=== PATIENT | female | born 1990 | race Caucasian/White ===

== ENCOUNTER → 2022-12-22 | Outpatient (CLI) | payer OTHER | LOC: M PLAIMG 08:54 | PROVIDERS: ATTEND Otolaryngology | DX: R07.0 Pain in throat (principal); J34.89 Other specified disorders of nose and nasal sinuses ==

== ENCOUNTER 2023-08-29 16:02 | Emergency (ER) | payer OTHER ==
[~2023-08-29] VITALS: Ht 160 cm; Wt 76.2 kg
[2023-08-29 16:02] VITALS: TEMP 97.4
[~2023-08-29 16:02] MED LIST: VITA1CAP25
[2023-08-29 17:21] LABS: BASO % 0.2 % (0.0-1.0); EOS % 0.4 % (0.0-3.0); HEMATOCRIT 41.7 % (36.0-47.0); LYMPH # 2.4 10^3/uL (1.5-5.0); LYMPH % 23.4 % (24.0-44.0); MEAN CORPUSCULAR HEMOGLOBIN 31.3 pg (27.0-33.0); MEAN CORPUSCULAR HGB CONC 33.6 g/dl (32.0-36.5); MEAN CORPUSCULAR VOLUME 93.3 fl (80.0-96.0); MONO % 10.3 % (2.0-8.0); NEUTROPHILS # 6.6 10^3/uL (1.5-8.5); NEUTROPHILS % 65.4 % (36.0-66.0); PLATELET COUNT, AUTOMATED 376 10^3/uL (150-450); RED BLOOD COUNT 4.47 10^6/uL (4.00-5.40); WHITE BLOOD COUNT 10.1 10^3/uL (4.0-10.0)
[2023-08-29 17:35] LABS: ALBUMIN 3.8 G/DL (3.2-5.2); ALKALINE PHOSPHATASE 65 U/L (46-116); ALT/SGPT 16 U/L (7.0-40); AST/SGOT 16 U/L (<34); BILIRUBIN,TOTAL 0.3 MG/DL (0.3-1.2); BLOOD UREA NITROGEN 7 MG/DL (9-23); CALCIUM LEVEL 9.5 MG/DL (8.5-10.1); CARBON DIOXIDE LEVEL 27 MMOL/L (20-31); CHLORIDE LEVEL 104 MMOL/L (98-107); CREATININE FOR GFR 0.57 MG/DL (0.55-1.30); GLOMERULAR FILTRATION RATE > 60.0 (>60); GLUCOSE, FASTING 108 MG/DL (60-100); HCG, SERUM QUALITATIVE NEGATIVE (NEGATIVE); POTASSIUM SERUM 3.8 MMOL/L (3.5-5.1); SODIUM LEVEL 139 MMOL/L (136-145); TOTAL PROTEIN 7.6 G/DL (5.7-8.2)
[2023-08-29] MEDS ORDERED: NS 1,000 ML IV ONE (20:00)
[2023-08-29 20:21] LABS: RSV AMPLIFICATION NEGATIVE (NEGATIVE)
[2023-08-29 20:29] LABS: CPK CREATINE PHOSPHOKINASE 61 U/L (34-145)
[2023-08-29 20:48] LABS: CPK CREATINE PHOSPHOKINASE 61 U/L (34-145)
[2023-08-29 21:22] LABS: CK-MB VALUE MASS < 1.0 NG/ML (<3.6); MB/CK RELATIVE INDEX 1.63 (< OR =4)
[2023-08-29 21:23] LABS: CK-MB VALUE MASS < 1.0 NG/ML (<3.6); MB/CK RELATIVE INDEX 1.63 (< OR =4)
[2023-08-29 21:27] LABS: FREE T4 1.42 NG/DL (0.89-1.76); THYROID STIMULATING HORMONE 4.263 uIU/ML (0.55-4.78)
[2023-08-29 22:15] VITALS: BP 123/77; O2SAT 97
== END 2023-08-29 22:40 | disposition home or self-care (01) ==
LOC: M ED 16:02
DX: R55 Syncope and collapse (principal); U07.1 COVID-19